=== PATIENT | male | born 1990 | race Caucasian/White ===

== ENCOUNTER 2016-10-21 12:15 | Emergency (ER) | payer OTHER ==
[~2016-10-21] VITALS: Ht 193 cm; Wt 81.6 kg
[2016-10-21 12:23] VITALS: BP 114/68
== END 2016-10-21 13:01 | disposition home or self-care (01) ==
LOC: ER 12:16
DX: R21 Rash and other nonspecific skin eruption (principal)
CPT/HCPCS: A4606; Z7610

== ENCOUNTER 2019-12-05 21:35 | Emergency (ER) | payer OTHER ==
[~2019-12-05] VITALS: Ht 193 cm; Wt 68.0 kg
--- NOTE | 2019-12-05 21:43 | NUR ---
PT [id number] FROM STREET C/O SUICIDAL IDEATION WITH A PLAN TO JUMP OFF BUILDING OR SHOOT HIMSELF. PT ALSO ENDORSES HI. PT AAOX4, CHANGED INTO GOWN, BELONGINGS PLACED TO LOCKER, SUICIDE PRECAUTIONS IMPLEMENTED. SITTER AT BEDSIDE FOR SAFETY. WILL CONTINUE TO MONITOR PT ACCORDINGLY.
--- NOTE | 2019-12-05 21:45 | NUR ---
URINE COLLECTED AND SENT TO LAB
--- NOTE | 2019-12-05 21:55 | NUR ---
[employer] AT BEDSIDE FOR EVALUATION.
--- NOTE | 2019-12-05 22:09 | NUR ---
XRAY AT BEDSIDE FOR XRAY PROCEDURE.
--- NOTE | 2019-12-05 22:13 | NUR ---
JOINTER MACHINE OPERATOR AT BEDSIDE FOR BLOOD DRAW
[2019-12-05 22:14] LABS: APPEARANCE,URINE Clear (CLEAR); BILIRUBIN,URINE Negative (NEGATIVE); BLOOD, URINE Negative Ery/uL (NEGATIVE); COLOR,URINE Yellow (YELLOW); KETONES,URINE Negative (NEGATIVE); LEUKOCYTE ESTERASE ,URINE Negative (NEGATIVE); NITRITE, URINE Negative (NEGATIVE); PH,URINE 6.5 (5.0-8.0); PROTEIN,URINE Negative (NEGATIVE); UGLUCOSE Negative (NEGATIVE); UROBILINOGEN,URINE 0.2 EU/dL (0.2)
[2019-12-05 22:28] LABS: BASOPHILS # (AUTO) 0.1 /CMM (0.0-0.2); BASOPHILS % (AUTO) 1.9 % (0.0-2.0); EOSINOPHILS % (AUTO) 2.5 % (0.0-6.0); HEMATOCRIT 41 % (39-51); HEMOGLOBIN 14.3 g/dL (13.5-17.5); LYMPHOCYTES # (AUTO) 3.1 /CMM (0.8-4.8); LYMPHOCYTES % (AUTO) 39.4 % (20.0-44.0); MEAN CORPUSCULAR HGB CONC 35 g/dl (31.0-36.0); MEAN CORPUSCULAR VOLUME 93 fL (80-96); MONOCYTES # (AUTO) 0.7 /CMM (0.1-1.30); MONOCYTES % (AUTO) 8.9 % (2.0-12.0); NEUTROPHILS # (AUTO) 3.7 /CMM (1.8-8.9); NEUTROPHILS % (AUTO) 47.3 % (43.0-81.0); PLATELET COUNT (AUTO) 240 /CMM (150-450); RED BLOOD CELL COUNT(AUTO) 4.43 MIL/uL (4.5-6.0); WHITE BLOOD COUNT (AUTO) 7.9 K/uL (4.3-11.0)
[2019-12-05 22:38] LABS: ALBUMIN 3.7 g/dL (3.4-5.0); BILIRUBIN,DIRECT 0.1 mg/dL (0.0-0.2); BILIRUBIN,TOTAL 0.3 mg/dL (0.2-1.0); CALCIUM, SERUM 8.1 mg/dL (8.5-10.1); CREATININE 0.8 mg/dL (0.6-1.3); POTASSIUM 3.3 mmol/L (3.5-5.1); TOTAL PROTEIN, SERUM 5.9 g/dL (6.4-8.2)
[2019-12-05 22:42] LABS: SALICYLATE 2.1 mg/dL (2.8-20.0)
--- NOTE | 2019-12-05 23:28 | NUR ---
PT RESTING COMFORTABLY IN BED. VSS. NO ACUTE DISTRESS NOTED. SITTER AT BEDSIDE FOR SAFETY
[2019-12-06 00:45] LABS: ALCOHOL, BLOOD 60 mg/dL (0-0)
--- NOTE | 2019-12-06 03:50 | NUR ---
PT ASLEEP IN BED. NOT IN RESPIRATORY DISTRESS. SITTER AT BEDSIDE FOR CONSTANT OBSERVATION.
--- NOTE | 2019-12-06 04:35 | NUR ---
ACCEPTED TO [facility]. DR. CAGLE IS THE DOCTOR. NUMBER FOR ERPORT IS [phone] EXT [phone]
--- NOTE | 2019-12-06 04:46 | NUR ---
PT AWAKE, AAOX4. STATES HE IS NO LONGER SUICIDAL. AWARE
[2019-12-06 04:56] VITALS: BP 129/87
--- NOTE | 2019-12-06 04:56 | NUR ---
Patient discharged to home in stable condition. Written and verbal after care instructions given. Patient verbalizes understanding of instruction.pt. ambulatory with a steady gait
== END 2019-12-06 04:56 | disposition home or self-care (01) ==
LOC: ER 21:36
DX: R45.851 Suicidal ideations (principal); F10.129 Alcohol abuse with intoxication, unspecified; R94.31 Abnormal electrocardiogram [ECG] [EKG]; F32.9 Major depressive disorder, single episode, unspecified; F20.9 Schizophrenia, unspecified; F17.200 Nicotine dependence, unspecified, uncomplicated; Y90.5 Blood alcohol level of 100-119 mg/100 ml
CPT/HCPCS: 36415 ×2; 71045; 80048; 80076; 80305; 80307 ×2; 80329; 81001; 84484 ×2; 85025; 85652; 93005; 99285; G0480; 81000-TC

== ENCOUNTER 2020-08-14 10:26 | Emergency (ER) | payer OTHER ==
[~2020-08-14] VITALS: Ht 188 cm; Wt 80.7 kg
[2020-08-14 10:38] VITALS: BP 127/88
--- NOTE | 2020-08-14 11:30 | NUR ---
Social Service Consult: business services associate consult requested for homelessness. Patient is a 29-year-old, white male. SW met with the patient at his hospital bed in the emergency department. Patient is alert and oriented x4. Per patients chart, patient presented to the emergency department on 08/14/2020 requesting to speak with a social psychologist to obtain resources for a fdc placement. Patient is homeless and stated he has been for a couple of years. Patient stated he currently receives food stamps. Patient denies any history of substance use, however per toxicology report, patient is positive for Benzodiazepines. Patient stated he has Schizophrenia and Depression. Patient stated he was taking Risperidone. Patient denies any hallucinations or delusions. Patient denies any thoughts of suicide or homicide. PLAN: SW to try and find accepting shelters for the patient.
--- NOTE | 2020-08-14 15:15 | NUR ---
"Sql Developer Dba note: Per patient request, SW contacted multiple shelters to find placement. SW contacted: [facility]: [facility] ([address] [facility], [address]; and was unable to speak to anyone or leave a voicemail; [facility] ([place]) and was unable to speak to anyone or leave a voicemail. [facility] [address] [place] [place] [address] and left a voicemail for digital media coordinator Rico. [facility] [address] [place] [address]; and was told that intakes were on only. SW spoke to the patient and discussed that this SW contacted multiple shelters but was unable to find placement. SW mentioned [facility] ([facility] [place] [address]; [phone]) has intakes starting at 1130am. Patient stated he will go to the [facility]. Transportation was discussed, and patient stated that he will take the bus. SW provided the patient with directions from the hospital to this [facility]. SW offered homeless resources to the patient and asked if he is familiar with the resources. Patient stated that he is familiar with the resources and accepted the resources. PLAN: Patient has been provided with resources and agrees to this discharge plan. Patient signed the homeless waiver and SW filed the waiver in the patients chart. No further SS intervention at this time, however SW will remain available as needed. Year-round shelters: [facility] [address] [place] [address] ; [facility] [address] [place] [address]; [facility] [address] [facility] [address] SPA 4 | [facility] [place] Provider: [facility] Address: [address], [address] # of Beds: 48 Population Served: [facility] Provider: [facility] Address: [address] [facility], [address] # of Beds: 73 Population Served: [place] SPA 6 | [facility] Provider: [facility] Address: [address] [facility], [address] # of Beds: 63 Population Served: [place] [facility] 3 | [facility] Provider: [place] Address: [address] [facility], [address] # of Beds: 75 Population Served: [place] SPA 8 | [facility] Provider: [facility] [place] Address: [address] [facility], [address] # of Beds: 80 Population Served: [facility] [place] [facility] 1 | [facility] Provider: [facility] [place] Address: [address] [place] [address], [address] # of Beds: 85 Population Served: [facility] [place] [facility] 2 | [facility] Provider: [facility] Address: Confidential (please call for location) # of Beds: 52 Population Served: [facility] [place] [facility] [employer] 4 | [facility] Provider: [facility] Address: [address] [facility], [address] # of Beds: 49 Population Served: [facility] Provider: [facility] Address: [address] [place] [address], [address] # of Beds: 27 Population Served: [facility] Provider: [facility] Address: [address] [facility], [address] # of Beds: 20 Population Served: [facility]: [facility]: [address] ; [facility] [address] [facility] ; [facility] [address] . Food Resources: [employer] at [facility]- [address] [place]; Meet Each Need with [facility] ([facility]) [address] [facility] [place]; [facility] [address] [facility]; [facility] [address] [facility]. Mental Health resources provided: [facility] [address] [place] [address] ; [facility] [address] [facility] [address], [place], [place] [id number] ; [facility] [address] [facility] [place], [place] [id number] ; [facility] [place], [place] [id number] Healthcare Clinics: [facility] [address] [facility], [address] [place]. [place] ; [facility] [address] [facility] [address] [place] [address]; [facility] [address] [facility]. [place] [phone]) [phone] Counseling--Outpatient [facility] [address] [facility], [address] [place], [place] [id number] (Specializes in in-depth psychotherapy for emotional distress: anxiety, depression, interpersonal conflicts, life transitions, childhood abuse) [facility] [address] [place] [address] (Assist with solving problem marital difficulties, separation & divorce, aging parents, & grief, chronic & terminal illness) PSYCHIATRIC OUTPATIENT SERVICES [facility] Partial Hospitalization and Intensive Outpatient Program (Managed Care and [place] Only) [address] [facility]. [facility] [phone] [facility] Partial Hospitalization and Outpatient Program [address] [place]. [address] [place], [place] [id number] [facility] Partial Hospitalization and Outpatient Program [address] [facility]. [place], [place] [id number] [facility] Mental [facility] [address] [address]. [address] [place] [address] [facility] Partial Hospitalization and Outpatient Program [address] [facility] [place], [place] [phone] "
== END 2020-08-14 12:15 | disposition home or self-care (01) ==
LOC: ER 10:30
DX: Z59.0 Homelessness (principal); F20.9 Schizophrenia, unspecified; F32.9 Major depressive disorder, single episode, unspecified